=== PATIENT | female | born 1960 | race Caucasian/White ===

== ENCOUNTER 2016-09-13 16:32 | Emergency (ER) | payer BC ==
[2016-09-13 16:49] VITALS: BP 142/76
--- NOTE | 2016-09-13 17:17 | UC ---
Throat Pain/Nasal Claudio HPI - HPI Summary HPI Summary: 56 yo female with sore throat x 1 day no f/c hurts to swallow - History of Current Complaint Chief Complaint: UCGeneralIllness Stated Complaint: SORE THROAT Time Seen by Provider: 09/13/16 16:45 Hx Obtained From: Patient Hx Last Menstrual Period: n/a Onset/Duration: Gradual Onset, Lasting Hours Severity: Moderate Pain Intensity: 6 Pain Scale Used: 0-10 Numeric - Allergies/Home Medications Allergies/Adverse Reactions: Allergies Allergy/AdvReac Type Severity Reaction Status Date / Time Codeine Allergy Wheezing Verified 09/13/16 16:47 Home Medications: Home Medications [id number] W/ APAP [Delsym Cough + Cold D... [id number] mg/10Ml] 1 liq PO DAILY 09/13/16 [History Confirmed 09/13/16] PMH/Surg Hx/FS Hx/Imm Hx Previously Healthy: Yes - Surgical History Surgical History: Yes Surgery Procedure, Year, and Place: hysterectomy 2011, gallbladder, tubal ligation - Family History Known Family History: Positive: Other - CA lung/colon Negative: Cardiac Disease, Hypertension, Diabetes - Social History Alcohol Use: Rare Substance Use Type: None Smoking Status (MU): Never Smoked Tobacco Review of Systems Constitutional: Negative Skin: Negative Eyes: Negative ENT: Sore Throat Respiratory: Negative Cardiovascular: Negative Gastrointestinal: Negative Genitourinary: Negative Motor: Negative Neurovascular: Negative Musculoskeletal: Negative Neurological: Negative Psychological: Negative All Other Systems Reviewed And Are Negative: Yes Physical Exam Triage Information Reviewed: Yes Appearance: Well-Appearing, No Pain Distress, Well-Nourished Vital Signs: Initial Vital Signs Temp 97.4 F 09/13/16 16:45 Pulse 113 09/13/16 16:45 Resp 16 09/13/16 16:45 BP 142/76 09/13/16 16:45 Pulse Ox 99 09/13/16 16:45 Vital Signs Reviewed: Yes Eyes: Positive: Conjunctiva Clear ENT: Positive: Hearing grossly normal, Pharyngeal erythema, Tonsillar swelling. Negative: TM bulging, Tonsillar exudate, Trismus, Muffled/hoarse voice Neck exam: Normal Neck: Positive: Supple, Nontender Respiratory: Positive: Lungs clear, Normal breath sounds Cardiovascular: Positive: RRR, No Murmur Musculoskeletal: Positive: ROM Intact, No Edema Neurological: Positive: Alert Skin Exam: Normal Throat Pain/Nasal Course/Dx - Differential Dx/Diagnosis Provider Diagnoses: acute pharyngitis Discharge - Discharge Plan Condition: Stable Disposition: HOME Prescriptions: Amoxicillin (*) [Amoxicillin 875 MG (*)] 875 mg PO BID #20 tab Amoxicillin (*) [Amoxicillin 875 MG (*)] 875 mg PO BID #20 tab Fluconazole 150 MG (NF) [Diflucan 150 mg (NF)] 150 mg PO ONCE #1 tab Patient Education Materials: Pharyngitis (ED) Referrals: Ryan Machuca MD [Primary Care Provider] - 4 Days (if not better)
== END 2016-09-13 17:11 | disposition home or self-care (01) ==
LOC: UCCORT 16:32
DX: J02.9 Acute pharyngitis, unspecified (principal)
CPT/HCPCS: 99212; G0463